=== PATIENT | female | born 1995 | race Caucasian/White ===

== ENCOUNTER 2017-03-03 16:12 | Emergency (ER) | payer SELFPAY ==
[~2017-03-03] VITALS: Ht 160 cm; Wt 83.5 kg
[2017-03-03 18:15] LABS: microscopic required? NO
[2017-03-03 18:43] LABS: urine erythrocyte NEGATIVE (NEGATIVE)
[2017-03-03 19:20] LABS: CALCIUM 9.2 mg/dL (8.5-10.1); CARBON DIOXIDE 24.3 mmol/L (21-32); CHLORIDE SERUM 103 mmol/L (98-107); CREATININE SERUM 0.6 mg/dL (0.6-1.0); GFR1 > 60 mL/min; GLUCOSE SERUM 84 mg/dL (74-106); POTASSIUM SERUM 3.9 mmol/L (3.5-5.1); SODIUM SERUM 137 mmol/L (136-145)
[2017-03-03 19:21] LABS: BASOPHIL % 0.1 % (0-2); PLATELET COUNT 347 x10^3mcL (130-400)
[2017-03-03 19:31] LABS: ALBUMIN 3.6 g/dL (3.4-5.0); ALKALINE PHOSPHATASE 105 U/L (46-116); ALT/SGPT 15 U/L (14-59); AST/SGOT 13 U/L (15-37); BILIRUBIN TOTAL 0.1 mg/dL (0.20-1.00); C REACTIVE PROTEIN 1.2 mg/dL (<=0.9); TOTAL PROTEIN, SERUM 7.9 g/dL (6.4-8.2)
[2017-03-03 19:34] LABS: RED CELL DISTRIBUTION WIDTH 17.4 % (11.5-14.5)
[2017-03-03 19:37] LABS: CK-MB < 0.5 ng/mL (0-3.6); CREATINE KINASE 86 U/L (26-192)
[2017-03-03 19:59] LABS: FREE T4 0.86 ng/dL (0.76-1.46); FREE THYROXINE INDEX 2.3 ug/dL (1.4-4.5); T4(THYROXINE) 6.7 ug/dL (4.7-13.3)
[2017-03-03 22:32] VITALS: BP 101/55
[2017-03-04 08:40] LABS: T3 TOTAL 1.06 ng/mL
[2017-03-04 10:59] LABS: ERYTHROCYTE SED RATE 10 mm/hr (0-20)
== END 2017-03-03 22:33 | disposition home or self-care (01) ==
LOC: ED 16:12
PROVIDERS: Specialist
DX: R10.9 Unspecified abdominal pain (principal); R19.7 Diarrhea, unspecified
CPT/HCPCS: 36600; 83880; 84439; J0171; J1170; J1200; J2405; J3010; J7030; J7613; J7644